=== PATIENT | female | born 1985 | race American Indian/Alaskan Native ===

== ENCOUNTER 2018-01-13 10:52 | Emergency (ER) | payer OTHER ==
[2018-01-13 12:41] LABS: HCG Qualitative,Urine Positive (Negative)
[2018-01-13 12:47] LABS: Bacteria,Urine 3+ /HPF (Negative); Bilirubin,Urine NEG (Negative); Blood,Urine MOD (Negative); Color,Urine Yellow (Yellow); Hyaline Casts,Urine 1 /LPF; Mucus,Urine 2+ /HPF; Urobilinogen,Urine < 2.0 mg/dL (<2.0)
[2018-01-13 12:48] LABS: Protein,Urine >500 mg/dL (Negative)
[2018-01-13] MEDS ORDERED: NORMODYNE IV ONE ×2 (17:06→18:47)
[2018-01-13 17:56] LABS: Basophils # (Auto) 0.1 K/mm3 (0.0-0.1); Basophils % (Auto) 0.4 % (0.0-1.8); Eosinophils # (Auto) 0.1 K/mm3 (0.0-0.4); Eosinophils % (Auto) 0.8 % (0.0-4.3); Hematocrit 38.3 % (30.3-42.9); Hemoglobin 12.8 gm/dl (10.1-14.3); Lymphocytes # (Auto) 3.9 K/mm3 (1.2-5.4); Lymphocytes % (Auto) 23.8 % (13.4-35.0); Mean Corpuscular HGB Conc 34 % (30-34); Mean Corpuscular Hemoglobin 28 pg (28-32); Mean Corpuscular Volume 84 fl (79-97); Monocytes % (Auto) 5.9 % (0.0-7.3); Platelet Count 358 K/mm3 (140-440); Red Blood Count 4.57 M/mm3 (3.65-5.03); Red Cell Distribution Width 14.4 % (13.2-15.2)
[2018-01-13 18:05] LABS: Partial Thromboplastin Time 29.4 Sec. (24.2-36.6)
[2018-01-13 18:45] LABS: Alanine Aminotransferase 8 units/L (7-56); Albumin 3.4 g/dL (3.9-5); BUN/Creatinine Ratio 20; Blood Urea Nitrogen 8 mg/dL (7-17); Calcium 8.9 mg/dL (8.4-10.2); Hemolysis Index 46
[2018-01-13 18:52] LABS: Bilirubin,Direct < 0.2 mg/dL (0-0.2)
--- NOTE | 2018-01-13 18:54 | Emergency Department Report ---
ED General Adult HPI - General Chief complaint: Headache Stated complaint: Time Seen by Provider: 01/13/18 16:50 Source: patient Mode of arrival: Ambulatory Limitations: No Limitations - History of Present Illness Initial comments: This is a 32-year-old female that presents to the emergency department for evaluation of headaches. She actually states that she's been having headaches for 2 months. The last time she went to the doctor was 2 months ago and was found to have hypertension. She was prescription castellano she and her significant other claim. They next told me that she stopped eating fried chicken so she "does not have high blood pressure". However, they did not monitor her blood pressure at all. She states that she has had intermittent headaches but is not complaining of pain at the time of my encounter. She denies neck stiffness or soreness. She denies recent vomiting. She's had no fever or chills. She states that she can walk speak and "do everything". She states that she did 2 home test 2 weeks ago that were positive. Her last period was small and the end of November. The patient has a history of hypertension in . She had demise. She has no children. She does not seem to be medically compliant. -: month(s) (states intermittent headaches for months (2)) Location: head Radiation: non-radiation Quality: aching Consistency: intermittent, now resolved Improves with: none Worsens with: none Associated Symptoms: other (has had some nausea and occasional vomiting during this ) Treatments Prior to Arrival: none - Related Data Allergies Allergy/AdvReac Type Severity Reaction Status Date / Time Penicillins AdvReac Hives Verified 01/13/18 11:48 vancomycin AdvReac Itching Verified 01/13/18 11:48 ED Review of Systems ROS: Stated complaint: Other details as noted in HPI Constitutional: denies: chills, fever Eyes: denies: eye pain, eye discharge, vision change ENT: denies: ear pain, throat pain Respiratory: denies: cough, shortness of breath, wheezing Cardiovascular: denies: chest pain, palpitations Endocrine: no symptoms reported Gastrointestinal: denies: abdominal pain, nausea (no current nausea), diarrhea Genitourinary: denies: urgency, dysuria, discharge Musculoskeletal: denies: back pain, joint swelling, arthralgia Skin: denies: rash, lesions Neurological: as per HPI, headache (intermittent headaches). denies: weakness, paresthesias Psychiatric: denies: anxiety, depression Hematological/Lymphatic: denies: easy bleeding, easy bruising ED Past Medical Hx - Past Medical History Previous Medical History?: Yes Hx Hypertension: Yes (states with pregancy) Hx Dementia: Yes (States with pregancy) Additional medical history: fibroids - Surgical History Past Surgical History?: No - Social History Smoking Status: Unknown if ever smoked Substance Use Type: Marijuana ED Physical Exam - General Limitations: No Limitations General appearance: alert, in no apparent distress - Head Head exam: Present: atraumatic, normocephalic - Eye Eye exam: Present: normal appearance, PERRL, EOMI. Absent: scleral icterus - ENT ENT exam: Present: mucous membranes moist - Neck Neck exam: Present: normal inspection. Absent: tenderness, meningismus - Respiratory Respiratory exam: Present: normal lung sounds bilaterally. Absent: respiratory distress - Cardiovascular Cardiovascular Exam: Present: regular rate, normal rhythm. Absent: systolic murmur, diastolic murmur, rubs, gallop - GI/Abdominal GI/Abdominal exam: Present: soft, normal bowel sounds. Absent: distended, tenderness, guarding, rebound, rigid - Extremities Exam Extremities exam: Present: normal inspection. Absent: pedal edema, calf tenderness - Back Exam Back exam: Present: normal inspection - Neurological Exam Neurological exam: Present: alert, oriented X3, CN II-XII intact, normal gait. Absent: motor sensory deficit - Psychiatric Psychiatric exam: Present: normal mood, anxious - Skin Skin exam: Present: warm, dry, intact, normal color. Absent: rash ED Course Vital Signs 01/13/18 01/13/18 01/13/18 11:28 11:34 15:54 Temperature 98.8 F Pulse Rate 83 89 Respiratory 18 18 Rate Blood Pressure 195/109 181/10 Blood Pressure 181/103 [Right] O2 Sat by Pulse 100 Oximetry 01/13/18 01/13/18 01/13/18 17:47 17:57 18:32 Temperature Pulse Rate 87 85 81 Respiratory 18 18 Rate Blood Pressure 203/114 Blood Pressure 185/97 170/118 [Right] O2 Sat by Pulse 100 100 Oximetry - Reevaluation(s) Reevaluation #1: This is patient's very difficult to manage. She has an early on ultrasound. I am waiting for the ultrasound report. She is not interested in a CT of her head at this point. I do not think she really requires it. I will discuss this with Dr. Brown. She certainly has had headaches related to hypertension. She does not have an acute headache at this time. These headaches have been going on for 2 months. We will see how Dr. Brown feels about the CT exam. I don't think the patient will cooperate anyway. 01/13/18 18:59 Reevaluation #2: Patient is admitted to Dr. Brown with APPLICATIONS TRAINER consultation. 01/13/18 19:09 ED Medical Decision Making - Lab Data Result diagrams: 01/13/18 17:08 01/13/18 17:08 Laboratory Results - last 24 hr 01/13/18 01/13/18 01/13/18 12:04 17:08 17:08 WBC 16.3 H RBC 4.57 Hgb 12.8 Hct 38.3 MCV 84 MCH 28 MCHC 34 RDW 14.4 Plt Count 358 Lymph % (Auto) 23.8 Anson % (Auto) 5.9 Eos % (Auto) 0.8 Baso % (Auto) 0.4 Lymph # 3.9 Anson # 1.0 H Eos # 0.1 Baso # 0.1 Seg Neutrophils % 69.1 Seg Neutrophils # 11.3 H PT 13.7 INR 1.00 APTT 29.4 Sodium Potassium Chloride Carbon Dioxide Anion Gap BUN Creatinine Estimated GFR BUN/Creatinine Ratio Glucose Calcium Total Bilirubin Direct Bilirubin Indirect Bilirubin AST ALT Alkaline Phosphatase Total Protein Albumin Albumin/Globulin Ratio HCG, Quant Urine Color Yellow Urine Turbidity Clear Urine pH 5.0 Ur Specific Humphreys 1.016 Urine Protein >500 Urine Glucose (UA) Neg Urine Ketones Neg Urine Blood Mod Urine Nitrite Pos Ur Reducing Substances Not Reportable Urine Bilirubin Neg Urine Ictotest Not Reportable Urine Urobilinogen < 2.0 Ur Leukocyte Esterase Sm Urine WBC (Auto) 42.0 H Urine RBC (Auto) 4.0 U Epithel Cells (Auto) 12.0 Urine Bacteria (Auto) 3+ Hyaline Casts 1 Urine Mucus 2+ Urine HCG, Qual Positive A 01/13/18 01/13/18 17:08 17:08 WBC RBC Hgb Hct MCV MCH MCHC RDW Plt Count Lymph % (Auto) Anson % (Auto) Eos % (Auto) Baso % (Auto) Lymph # Anson # Eos # Baso # Seg Neutrophils % Seg Neutrophils # PT INR APTT Sodium 134 L Potassium 3.6 Chloride 100.9 Carbon Dioxide 17 L Anion Gap 20 BUN 8 Creatinine 0.4 L Estimated GFR > 60 BUN/Creatinine Ratio 20 Glucose 83 Calcium 8.9 Total Bilirubin 0.50 Direct Bilirubin < 0.2 Indirect Bilirubin 0.3 AST 15 ALT 8 Alkaline Phosphatase 85 Total Protein 7.4 Albumin 3.4 L Albumin/Globulin Ratio 0.9 HCG, Quant 14766 H Urine Color Urine Turbidity Urine pH Ur Specific Humphreys Urine Protein Urine Glucose (UA) Urine Ketones Urine Blood Urine Nitrite Ur Reducing Substances Urine Bilirubin Urine Ictotest Urine Urobilinogen Ur Leukocyte Esterase Urine WBC (Auto) Urine RBC (Auto) U Epithel Cells (Auto) Urine Bacteria (Auto) Hyaline Casts Urine Mucus Urine HCG, Qual Critical care attestation.: If time is entered above; I have spent that time in minutes in the direct care of this critically ill patient, excluding procedure time. ED Disposition Clinical Impression: Uncontrolled hypertension, First trimester Cephalalgia Qualifiers: Headache type: unspecified Headache chronicity pattern: chronic headache Intractability: not intractable Qualified Code(s): R51 - Headache Disposition: OP ADMIT IP TO THIS HOSP Is pt being admited?: Yes Does the pt Need Aspirin: No Condition: Stable Instructions: Hypertension (ED) Referrals: PRIMARY CARE, [Primary Care Provider] - 3-5 Days Time of Disposition: 19:09
[2018-01-13 19:10] LABS: Amphetamine Screen,Urine PRESUMPTIVE NEGATIVE; Benzodiazepines Screen,Urine PRESUMPTIVE NEGATIVE; Cocaine Screen,Urine PRESUMPTIVE NEGATIVE; Methadone Screen,Urine PRESUMPTIVE NEGATIVE; Opiate Screen,Urine PRESUMPTIVE NEGATIVE
[2018-01-13 19:23] LABS: Cannabinoid Screen,Urine PRESUMPTIVE POSITIVE
--- NOTE | 2018-01-13 19:23 | History and Physical Report ---
History of Present Illness History of present illness: ED General Adult HPI - General Chief complaint: Headache Stated complaint: Time Seen by Provider: 01/13/18 16:50 Source: patient Mode of arrival: Ambulatory Limitations: No Limitations - History of Present Illness Initial comments: This is a 32-year-old female that presents to the emergency department for evaluation of headaches. She actually states that she's been having headaches for 2 months. The last time she went to the doctor was 2 months ago and was found to have hypertension. She was prescription castellano she and her significant other claim. They next told me that she stopped eating fried chicken so she "does not have high blood pressure". However, they did not monitor her blood pressure at all. She states that she has had intermittent headaches but is not complaining of pain at the time of my encounter. She denies neck stiffness or soreness. She denies recent vomiting. She's had no fever or chills. She states that she can walk speak and "do everything". She states that she did 2 home test 2 weeks ago that were positive. Her last period was small and the end of November. The patient has a history of hypertension in . She had demise. She has no children. She does not seem to be medically compliant. -: month(s) (states intermittent headaches for months (2)) Location: head Radiation: non-radiation Quality: aching Consistency: intermittent, now resolved Improves with: none Worsens with: none Associated Symptoms: other (has had some nausea and occasional vomiting during this ) Treatments Prior to Arrival: none - Related Data Allergies Allergy/AdvReac Type Severity Reaction Status Date / Time Penicillins AdvReac Hives Verified 01/13/18 11:48 vancomycin AdvReac Itching Verified 01/13/18 11:48 ED Review of Systems ROS: Stated complaint: Other details as noted in HPI Constitutional: denies: chills, fever Eyes: denies: eye pain, eye discharge, vision change ENT: denies: ear pain, throat pain Respiratory: denies: cough, shortness of breath, wheezing Cardiovascular: denies: chest pain, palpitations Endocrine: no symptoms reported Gastrointestinal: denies: abdominal pain, nausea (no current nausea), diarrhea Genitourinary: denies: urgency, dysuria, discharge Musculoskeletal: denies: back pain, joint swelling, arthralgia Skin: denies: rash, lesions Neurological: as per HPI, headache (intermittent headaches). denies: weakness, paresthesias Psychiatric: denies: anxiety, depression Hematological/Lymphatic: denies: easy bleeding, easy bruising ED Past Medical Hx - Past Medical History Previous Medical History?: Yes Hx Hypertension: Yes (states with pregancy) Hx Dementia: Yes (States with pregancy) Additional medical history: fibroids - Surgical History Past Surgical History?: No - Social History Smoking Status: Unknown if ever smoked Substance Use Type: Marijuana Medications and Allergies Allergies Allergy/AdvReac Type Severity Reaction Status Date / Time Penicillins AdvReac Hives Verified 01/13/18 11:48 vancomycin AdvReac Itching Verified 01/13/18 11:48 Exam - Constitutional Vitals: Temp Pulse Resp BP Pulse Ox 98.8 F 81 18 189/101 100 01/13/18 11:34 01/13/18 18:32 01/13/18 18:32 01/13/18 18:55 01/13/18 18:32 Results - Labs CBC & Chem 7: 01/13/18 17:08 01/13/18 17:08 Labs: Abnormal lab results 01/13/18 01/13/18 01/13/18 Range/Units 12:04 17:08 17:08 WBC 16.3 H (4.5-11.0) K/mm3 Kimble # 1.0 H (0.0-0.8) K/mm3 Seg Neutrophils # 11.3 H (1.8-7.7) K/mm3 Sodium 134 L (137-145) mmol/L Carbon Dioxide 17 L (22-30) mmol/L Creatinine 0.4 L (0.7-1.2) mg/dL Albumin 3.4 L (3.9-5) g/dL HCG, Quant (0-4) mIU/mL Urine WBC (Auto) 42.0 H (0.0-6.0) /HPF Urine HCG, Qual Positive A (Negative) 01/13/18 Range/Units 17:08 WBC (4.5-11.0) K/mm3 Kimble # (0.0-0.8) K/mm3 Seg Neutrophils # (1.8-7.7) K/mm3 Sodium (137-145) mmol/L Carbon Dioxide (22-30) mmol/L Creatinine (0.7-1.2) mg/dL Albumin (3.9-5) g/dL HCG, Quant 95303 H (0-4) mIU/mL Urine WBC (Auto) (0.0-6.0) /HPF Urine HCG, Qual (Negative)
[2018-01-13 19:32] VITALS: BP 166/95
--- NOTE | 2018-01-13 19:35 | Ultrasound Report ---
FINAL REPORT EXAM: US OB < = 14 WEEKS FETUS HISTORY: gestational age LMP 11/28/2017 with estimated age 6 weeks 4 days and EDC 09/04/2018 vaginal spotting. TECHNIQUE: Ultrasound of the pelvis using transabdominal and transvaginal imaging PRIORS: None. FINDINGS: Uterus: Uterus is enlarged in size and normal and homogeneous in echogenicity without focal fibroid formation. The uterus measures 10.3 x 5.8 x 6.9 cm in size. There is a single early viable intrauterine gestation noted. Intrauterine gestation: There is a single intrauterine gestation identified with both a pole and yolk sac. heart rate is monitored at 114 BPM using M-mode doppler. Quinn-rump length measurement of 4.8 mm corresponds to estimated age 6 weeks 1 days with EDC 09/07/2018. There is a tiny subchorionic hemorrhage identified along the anterior margin. Ovaries: Both ovaries appear normal in size and echogenicity with normal blood flow bilaterally. The right ovary measures 2.4 x 2.1 x 2.4 cm and the left ovary measures 2.8 x 0.9 x 2.0 cm in size. Other: There is no evidence for solid adnexal mass is seen. There is no free fluid in the cul-de-sac. IMPRESSION: Single intrauterine viable with an approximate age of 6 weeks 1 days. Tiny subchorionic hemorrhage noted.
== END 2018-01-13 20:18 | disposition left against medical advice (07) ==
LOC: ED 10:52
DX: O29.41 Spinal and epidural anesthesia induced headache during pregnancy, first trimester (principal); O16.1 Unspecified maternal hypertension, first trimester; O99.341 Other mental disorders complicating pregnancy, first trimester; F03.90 Unspecified dementia, unspecified severity, without behavioral disturbance, psychotic disturbance, mood disturbance, and anxiety; F12.10 Cannabis abuse, uncomplicated; Z3A.01 Less than 8 weeks gestation of pregnancy; Z88.0 Allergy status to penicillin; Z88.1 Allergy status to other antibiotic agents; Z79.899 Other long term (current) drug therapy
CPT/HCPCS: 36415; 76801; 76817; 80048; 80074; 80307; 81001; 81025; 84702; 85025; 85610; 85730; 96374; 96376; 99284

== ENCOUNTER 2018-01-25 07:43 | Inpatient (IN) | payer MEDICAID, OTHER ==
[2018-01-25 09:10] LABS: Bilirubin,Urine NEG (Negative); Blood,Urine SM (Negative); Color,Urine Yellow (Yellow); Hyaline Casts,Urine 1 /LPF; Mucus,Urine FEW /HPF; Urobilinogen,Urine < 2.0 mg/dL (<2.0)
[2018-01-25] MEDS ORDERED: TYLENOL ONE (09:39)
[2018-01-25 09:45] LABS: Hematocrit 38.7 % (30.3-42.9); Hemoglobin 12.8 gm/dl (10.1-14.3); Mean Corpuscular HGB Conc 33 % (30-34); Mean Corpuscular Hemoglobin 28 pg (28-32); Mean Corpuscular Volume 85 fl (79-97); Platelet Count 368 K/mm3 (140-440); Red Blood Count 4.53 M/mm3 (3.65-5.03); Red Cell Distribution Width 14.3 % (13.2-15.2)
--- NOTE | 2018-01-25 10:37 | Ultrasound Report ---
Pelvic and transvaginal sonography: History: Cramping and bleeding. Findings: Uterus measures 12.1 x 5.9 x 8 cm. Single intrauterine gestation. CRL of fetus is 15.8 mm corresponding to 8 weeks of gestation. heart rate 166 per minute Right ovary 3.7 x 2.2 x 2.2 cm. Complex cyst in the right ovary measures 2.1 cm. Left ovary 3.7 x 1.9 x 2.3 cm. No mass. Impression: Single viable intrauterine gestation.
[2018-01-25] MEDS ORDERED: NORMODYNE IV ONE (10:49)
[2018-01-25] MEDS ORDERED: ZOFRAN IV ONE (10:50)
[2018-01-25] MEDS ORDERED: NACL 0.9% 1000 ML 1,000 ML IV ONE (10:50)
[2018-01-25 11:20] LABS: BUN/Creatinine Ratio 12; Blood Urea Nitrogen 6 mg/dL (7-17); Calcium 9.2 mg/dL (8.4-10.2); Hemolysis Index 19
[2018-01-25 11:21] LABS: Amphetamine Screen,Urine PRESUMPTIVE NEGATIVE; Benzodiazepines Screen,Urine PRESUMPTIVE NEGATIVE; Cocaine Screen,Urine PRESUMPTIVE NEGATIVE; Methadone Screen,Urine PRESUMPTIVE NEGATIVE; Opiate Screen,Urine PRESUMPTIVE NEGATIVE
[2018-01-25] MEDS ORDERED: ZOFRAN IV PRN (11:28)
[2018-01-25] MEDS ORDERED: TYLENOL PO PRN (11:28)
[2018-01-25] MEDS ORDERED: ROCEPHIN/NS 1 GM/50 ML 1 GM/50 ML BAG IV ONE (11:28)
[2018-01-25] MEDS ORDERED: SODIUM CHLORIDE FLUSH SYRINGE 10 ML IV PRN (11:28)
[2018-01-25] MEDS ORDERED: NACL 0.9% 1000 ML IV ONE (11:28)
--- NOTE | 2018-01-25 11:28 | History and Physical Report ---
History of Present Illness Chief complaint: My stomach hurts, and im spotting History of present illness: 32 YO Female with Gestational DM, Gestational HTN from previous 6 years ago presents to ED for evaluation. Pt denies outpatient follow up, or taking any medication for HTN or DM. Pt states that she has experienced vaginal bleeding (spotting) for the past 3 days with increased frequency over the past 1 day. Pt also states that she has experienced abdominal pain over the past 6 weeks with worsening symptoms over the past 2 days. Pt states that her pain is 10/10, diffuse, cramping, Pt seen and evaluated in ED and found to have evidence of Sepsis, Hypertensive Urgency, as well as . Pt denies fever , chills, CP, Palpitations, NVD, Syncope, BRBPR, vision changes, headaches, hematuria, Trauma. OB consulted in ED. Past History Past Medical History: diabetes, hypertension Past Surgical History: No surgical history, Other (reviewed) Social history: single, lives with family. denies: smoking, alcohol abuse, prescription drug abuse Family history: hypertension Medications and Allergies Allergies Allergy/AdvReac Type Severity Reaction Status Date / Time Penicillins AdvReac Hives Verified 01/13/18 11:48 vancomycin AdvReac Itching Verified 01/13/18 11:48 Active Meds: Active Medications Sodium Chloride (Nacl 0.9% 1000 Ml) 1,000 mls @ 75 mls/hr IV ONCE ONE Stop: 01/26/18 00:09 Review of Systems Constitutional: no weight loss, no weight gain, no fever, no chills Ears, nose, mouth and throat: no ear pain, no ear discharge, no tinnitis, no decreased hearing, no nose pain Breasts: no change in shape, no swelling, no mass Cardiovascular: no chest pain, no orthopnea, no palpitations, no rapid/ irregular heart beat, no edema Respiratory: no cough, no cough with sputum, no excessive sputum, no hemoptysis , no shortness of breath Gastrointestinal: abdominal pain, no nausea, no vomiting, no diarrhea, no constipation, no BRBPR, no melena, no hematochezia Genitourinary Female: other (vaginal bleeding), no dysmenorrhea, no pelvic pain , no flank pain, no menorrhagia, no dysuria Rectal: no pain, no incontinence, no bleeding Musculoskeletal: no neck stiffness, no neck pain, no shooting arm pain, no arm numbness/tingling, no low back pain Integumentary: no rash, no pruritis, no redness, no sores, no wounds, no jaundice Neurological: no paralysis, no weakness, no parathesias, no numbness, no tingling, no seizures Psychiatric: no anxiety, no memory loss, no change in sleep habits, no sleep disturbances, no insomnia, no change in appetite Endocrine: no cold intolerance, no heat intolerance, no polyphagia, no excessive thirst, no polydipsia, no polyuria Hematologic/Lymphatic: no easy bruising, no easy bleeding, no lymphadenopathy, no lymphedema Allergic/Immunologic: no urticaria, no allergic rhinitis, no wheezing Exam - Constitutional Vitals: Temp Pulse Resp BP Pulse Ox 97.7 F 92 H 18 193/106 100 01/25/18 08:37 01/25/18 08:37 01/25/18 08:37 01/25/18 08:37 01/25/18 08:37 General appearance: Present: mild distress - EENT Eyes: Present: PERRL ENT: hearing intact, clear oral mucosa - Neck Neck: Present: supple, normal ROM - Respiratory Respiratory effort: normal Respiratory: bilateral: CTA - Cardiovascular Heart Sounds: Present: S1 & S2. Absent: rub, click - Extremities Extremities: pulses symmetrical, No edema Peripheral Pulses: within normal limits - Abdominal General gastrointestinal: Present: soft, non-tender, non-distended, normal bowel sounds Female genitourinary: Present: normal - Integumentary Integumentary: Present: clear, warm, dry - Musculoskeletal Musculoskeletal: gait normal, strength equal bilaterally - Psychiatric Psychiatric: appropriate mood/affect, intact judgment & insight - Neurologic Neurologic: CNII-XII intact, moves all extremities Results - Labs CBC & Chem 7: 01/25/18 08:51 01/25/18 08:51 Labs: Abnormal lab results 01/25/18 01/25/18 01/25/18 Range/Units 08:51 08:51 08:51 WBC 20.3 H (4.5-11.0) K/mm3 Sodium 123 L (137-145) mmol/L Potassium 3.4 L (3.6-5.0) mmol/L Chloride 84.0 L (98-107) mmol/L Carbon Dioxide 21 L (22-30) mmol/L BUN 6 L (7-17) mg/dL Creatinine 0.5 L (0.7-1.2) mg/dL Glucose 138 H (65-100) mg/dL HCG, Quant 01598 H (0-4) mIU/mL Urine WBC (Auto) (0.0-6.0) /HPF 01/25/18 Range/Units Unknown WBC (4.5-11.0) K/mm3 Sodium (137-145) mmol/L Potassium (3.6-5.0) mmol/L Chloride (98-107) mmol/L Carbon Dioxide (22-30) mmol/L BUN (7-17) mg/dL Creatinine (0.7-1.2) mg/dL Glucose (65-100) mg/dL HCG, Quant (0-4) mIU/mL Urine WBC (Auto) 15.0 H (0.0-6.0) /HPF Assessment and Plan - Patient Problems (1) Sepsis Current Visit: Yes Status: Acute Qualifiers: Sepsis type: sepsis due to unspecified organism Qualified Code(s): A41.9 - Sepsis, unspecified organism Plan to address problem: Sepsis protocol, IV antibiotics, IVF resuscitation, monitor uop q shift, serial lactic acid, urinalysis, (2) Abdominal pain Current Visit: Yes Status: Acute Qualifiers: Abdominal location: right upper quadrant Qualified Code(s): R10.11 - Right upper quadrant pain Plan to address problem: Suspect threatened : SUB MASTER consulted, ultrasound, pain control, bowel rest, IVF resuscitation. (3) Accelerated hypertension Current Visit: Yes Status: Acute Plan to address problem: monitor bp q shift, iv hydralazine prn, (4) UTI (urinary tract infection) Current Visit: Yes Status: Acute Qualifiers: Urinary tract infection type: acute cystitis Hematuria presence: with hematuria Qualified Code(s): N30.01 - Acute cystitis with hematuria Plan to address problem: IV antibiotic therapy, urinalysis, (5) First trimester Current Visit: No Status: Acute Plan to address problem: OBGYN consulted, further testing as per obgyn team. (6) DVT prophylaxis Current Visit: Yes Status: Acute Plan to address problem: scd to ble while in bed.
[2018-01-25 11:33] LABS: Alanine Aminotransferase 12 units/L (7-56); Albumin 3.8 g/dL (3.9-5); Bilirubin,Direct < 0.2 mg/dL (0-0.2)
[2018-01-25 11:48] LABS: Cannabinoid Screen,Urine PRESUMPTIVE POSITIVE
[2018-01-25] MEDS ORDERED: cefTRIAXone 1 GM in NACL 0.9% 20 ML IV ONE (12:00)
[2018-01-25] MEDS ORDERED: XYLOCAINE 1% 20 mL ONE (12:36)
[2018-01-25] MEDS ORDERED: XYLOCAINE 1% 20 mL INFILTRATI ONE (12:36)
[2018-01-25] MEDS ORDERED: MORPHINE IV ONE ×2 (13:11→15:12)
--- NOTE | 2018-01-25 13:19 | Emergency Department Report ---
ED General Adult HPI - General Chief complaint: Abdominal Pain Stated complaint: ABDOMINAL PAIN Time Seen by Provider: 01/25/18 10:44 Source: patient Mode of arrival: Ambulatory Limitations: No Limitations - History of Present Illness Initial comments: This is a 32-year-old female who I have seen before a few weeks ago towards the end of December. She was admitted at that time to Dr. Brown for uncontrolled hypertension in and UTI. BUSINESS FUNCTIONAL ANALYST consult was ordered. However unfortunately the patient decided to leave A. She tells me that about a week ago. Went to [facility]. She was told she still had a UTI and prescribed antibiotics. She tells me "I decided to go the natural route instead". The patient has been unfortunately does not compliant with her antibiotics and her antihypertensive regimen. Patient tells me that she has had intermittent crampy right mid quadrant pain "since I got ". She had an ultrasound 2 weeks ago which showed a 6 weeks viable . Today's ultrasound showed an 8 week viable . She states that she's had occasional vaginal spotting to the hospitalist but did not prefer that to me. She denies fever or chills. She states that she has been nauseated and vomiting. She also complains of some constipation. She is not confused or disoriented. She presents with her significant other. -: Gradual Location: abdomen Radiation: non-radiation Quality: other (Cramping) Consistency: intermittent Improves with: none Worsens with: none Associated Symptoms: denies other symptoms Treatments Prior to Arrival: none - Related Data Allergies Allergy/AdvReac Type Severity Reaction Status Date / Time Penicillins AdvReac Hives Verified 01/13/18 11:48 vancomycin AdvReac Itching Verified 01/13/18 11:48 ED Review of Systems ROS: Stated complaint: ABDOMINAL PAIN Other details as noted in HPI Constitutional: denies: chills, fever Eyes: denies: eye pain, eye discharge, vision change ENT: denies: ear pain, throat pain Respiratory: denies: cough, shortness of breath, wheezing Cardiovascular: denies: chest pain, palpitations Endocrine: no symptoms reported Gastrointestinal: abdominal pain, nausea, vomiting. denies: diarrhea Genitourinary: other (occasional spotting). denies: urgency, dysuria, discharge Musculoskeletal: denies: back pain, joint swelling, arthralgia Skin: denies: rash, lesions Neurological: denies: headache, weakness, paresthesias Psychiatric: denies: anxiety, depression Hematological/Lymphatic: denies: easy bleeding, easy bruising ED Past Medical Hx - Past Medical History Hx Hypertension: Yes (states with pregancy) Hx Dementia: Yes (States with pregancy) Additional medical history: fibroids - Surgical History Past Surgical History?: No - Social History Smoking Status: Never Smoker Substance Use Type: None ED Physical Exam - General Limitations: No Limitations General appearance: alert, in no apparent distress - Head Head exam: Present: atraumatic, normocephalic - Eye Eye exam: Present: normal appearance. Absent: scleral icterus - ENT ENT exam: Present: mucous membranes moist - Neck Neck exam: Present: normal inspection. Absent: tenderness, meningismus - Respiratory Respiratory exam: Present: normal lung sounds bilaterally. Absent: respiratory distress - Cardiovascular Cardiovascular Exam: Present: regular rate, normal rhythm. Absent: systolic murmur, diastolic murmur, rubs, gallop - GI/Abdominal GI/Abdominal exam: Present: soft, normal bowel sounds. Absent: distended, tenderness, guarding, rebound, rigid, organomegaly (no hepatomegaly negative Villegas's), mass, bruit, pulsatile mass, hernia - Extremities Exam Extremities exam: Present: normal inspection, normal capillary refill. Absent: pedal edema, calf tenderness - Back Exam Back exam: Present: normal inspection. Absent: CVA tenderness (R), CVA tenderness (L), muscle spasm, paraspinal tenderness, vertebral tenderness - Neurological Exam Neurological exam: Present: alert, oriented X3, CN II-XII intact. Absent: motor sensory deficit - Psychiatric Psychiatric exam: Present: normal affect, normal mood - Skin Skin exam: Present: warm, dry, intact, normal color. Absent: rash ED Course Vital Signs 01/25/18 01/25/18 01/25/18 08:37 11:30 11:31 Temperature 97.7 F 98.2 F Temperature [ Pre-Procedure] Pulse Rate 92 H 90 Pulse Rate [Pre -Procedure] Respiratory 18 16 16 Rate Respiratory Rate [Pre- Procedure] Blood Pressure 193/106 Blood Pressure 203/103 [Left] Blood Pressure [Pre-Procedure] O2 Sat by Pulse 100 100 100 Oximetry 01/25/18 01/25/18 13:20 13:24 Temperature Temperature [ 98.0 F Pre-Procedure] Pulse Rate 90 Pulse Rate [Pre 86 -Procedure] Respiratory Rate Respiratory 20 Rate [Pre- Procedure] Blood Pressure 203/103 Blood Pressure [Left] Blood Pressure 190/110 [Pre-Procedure] O2 Sat by Pulse Oximetry - Reevaluation(s) Reevaluation #1: Nurses attempted several times to obtain a peripheral access. They were unsuccessful. I did inspect the patient's neck. It is very white and there is no EJ evident. Therefore a central line was necessitated. The right femoral triangle was clean and the most reasonable place to place a central line considering the patient's anatomy and actually poor cooperation as well. The area was anesthetized with additional lidocaine. The patient actually did quite well with the central line which was successful after one puncture. The patient explained that the previous allergic reaction to penicillin consisted of "a few blisters on my left arm that didn't last long". Ceftriaxone was ordered for her UTI. Patient was found to be substantially hyponatremic. She is given IV fluid. I did not want to bolus her because of her hypertension. Her mental status was normal. She was admitted to the hospitalist service for further care and evaluation. 01/25/18 13:35 Reevaluation #2: Additionally the patient had a complete abdominal ultrasound ordered to further workup her right sided abdominal pain and leukocytosis. She states she has had this since "I was ". 01/25/18 13:39 - Central Line Placement Right Femoral Consent Obtained: written consent Time Out Performed: Yes Patient Placed on Monitor/Pulse Ox: No MD Prep: mask, gown, gloves Central Line Prep: Povidone-Iodine 1%, Chlorhexidine scrub Local Anesthesia Used: Lidocaine 1% Amount of Anesthesia Used (mls): 10 Ultrasound Used for Placement: No Central Line Lumen Inserted: triple Bloods Obtained for Lab: No Central Line Position: good blood return (venous nonpulsatile), all ports aspirated, flus, sutured in place with 3-0 Dressing Applied: Tegaderm Post Procedure X-Ray: other (not applicable) Patient Tolerated Procedure: well (single puncture well tolerated) Complications: none ED Medical Decision Making - Lab Data Result diagrams: 01/25/18 08:51 01/25/18 08:51 Laboratory Results - last 24 hr 01/25/18 01/25/1818 08:51 08:51 08:51 WBC 20.3 H RBC 4.53 Hgb 12.8 Hct 38.7 MCV 85 MCH 28 MCHC 33 RDW 14.3 Plt Count 368 Sodium Potassium Chloride Carbon Dioxide Anion Gap BUN Creatinine Estimated GFR BUN/Creatinine Ratio Glucose Calcium Magnesium Total Bilirubin Direct Bilirubin Indirect Bilirubin AST ALT Alkaline Phosphatase Total Protein Albumin Albumin/Globulin Ratio HCG, Quant 51053 H Blood Type A POSITIVE 01/25/18 01/25/18 08:51 08:51 WBC RBC Hgb Hct MCV MCH MCHC RDW Plt Count Sodium 123 L Potassium 3.4 L Chloride 84.0 L Carbon Dioxide 21 L Anion Gap 21 BUN 6 L Creatinine 0.5 L Estimated GFR > 60 BUN/Creatinine Ratio 12 Glucose 138 H Calcium 9.2 Magnesium 2.00 Total Bilirubin 0.50 Direct Bilirubin < 0.2 Indirect Bilirubin 0.3 AST 14 ALT 12 Alkaline Phosphatase 86 Total Protein 7.3 Albumin 3.8 L Albumin/Globulin Ratio 1.1 HCG, Quant Blood Type - Radiology Data Radiology results: report reviewed Critical Care Time: Yes Critical care time in (mins) excluding proc time.: 60 Critical care attestation.: If time is entered above; I have spent that time in minutes in the direct care of this critically ill patient, excluding procedure time. ED Disposition Clinical Impression: Hyperemesis gravidarum, Accelerated hypertension, with 8 completed weeks gestation, Hyponatremia Leukocytosis Qualifiers: Leukocytosis type: unspecified Qualified Code(s): D72.829 - Elevated white blood cell count, unspecified UTI (urinary tract infection) Qualifiers: Urinary tract infection type: acute cystitis Hematuria presence: with hematuria Qualified Code(s): N30.01 - Acute cystitis with hematuria Abdominal pain Qualifiers: Abdominal location: right upper quadrant Qualified Code(s): R10.11 - Right upper quadrant pain Disposition: 09 OP ADMIT IP TO THIS HOSP Is pt being admited?: Yes Does the pt Need Aspirin: No Condition: Stable Time of Disposition: 13:44
[2018-01-25] MEDS ORDERED: MORPHINE ONE (13:25)
--- NOTE | 2018-01-25 17:20 | Consultation ---
History of Present Illness Consult date: 01/25/18 Requesting physician: DAREN LISA Reason for consult: other (abdominal pain, hypertension, ) History of present illness: Thank you kindly for the consult. Pt is a 32 year old -Ang[place] female LMP 11/26/17 at 8w4d presents to ED secondary to severe abdominal pain x 2 days. She presented on 01/13/18 after discovering her , was found to have hypertensive urgency and acute cystitis but left AGAINST MEDICAL ADVICE. She reports subsequently being seen in the emergency department at [facility] where she reports being diagnosed with cystitis and treated with an oral antibiotic. She did not take the antibiotic however secondary to some nausea and vomiting. According to her partner, her nausea and vomiting worsened this past Saturday after eating a [employer] sandwich. Since then she has not been able to tolerate oral intake and has had multiple episodes of emesis each day. Of note, the patient has an issue with chronic constipation prior to her and has not had a bowel movement for 7 days. She does report vaginal spotting intermittently since her positive test a few weeks ago. She has not yet established care, but she plans to follow up at [facility] on 01/27/2018. Her obstetric history is significant for an intrauterine demise at term in 2011 complicated by gestational hypertension according to the patient. Past History Past Medical History: hypertension (chronic ) Past Surgical History: no surgical history ENDOCRINOLOGY NURSE History: fibroids (per pt) Social history: no significant social history, other (Marijuana use for nausea ) - Obstetrical History Expected Date of Delivery: 09/02/18 Actual Gestation: 8 Week(s) 4 Day(s) : 2 Para: 0 Hx # Term Pregnancies: 1 Number of Pregnancies: 0 Spontaneous Abortions: 0 Induced : 0 Number of Living Children: 0 Medications and Allergies Allergies Allergy/AdvReac Type Severity Reaction Status Date / Time Penicillins AdvReac Hives Verified 01/13/18 11:48 vancomycin AdvReac Itching Verified 01/13/18 11:48 Active Meds: Active Medications Acetaminophen (Tylenol) 650 mg PO Q4H PRN PRN Reason: Pain MILD(1-3)/Fever >100.5/DANIELLE Sodium Chloride (Nacl 0.9% 1000 Ml) 1,000 mls @ 75 mls/hr IV ONCE ONE Stop: 01/26/18 00:09 Last Admin: 01/25/18 13:24 Dose: 75 mls/hr Ondansetron HCl (Zofran) 4 mg IV Q8H PRN PRN Reason: Nausea And Vomiting Sodium Chloride (Sodium Chloride Flush Syringe 10 Ml) 10 ml IV BID LOKI Sodium Chloride (Sodium Chloride Flush Syringe 10 Ml) 10 ml IV PRN PRN PRN Reason: LINE FLUSH Review of Systems All systems: negative - Vital Signs Vital signs: Vital Signs Temp Pulse Resp BP Pulse Ox 97.7 F 92 H 18 193/106 100 01/25/18 08:37 01/25/18 08:37 01/25/18 08:37 01/25/18 08:37 01/25/18 08:37 Temp Pulse Resp BP Pulse Ox 97.7 F 86 22 190/100 100 01/25/18 15:16 01/25/18 15:16 01/25/18 16:01 01/25/18 15:16 01/25/18 15:16 - Physical Exam Breasts: Positive: deferred Cardiovascular: Regular rate Lungs: Positive: Clear to auscultation Abdomen: Positive: soft, abnormal bowel sounds (hypoactive ) Extremities: Positive: normal Results Result Diagrams: 01/25/18 08:51 01/25/18 08:51 Abnormal lab results 01/25/18 01/25/18 01/25/18 Range/Units 08:51 08:51 08:51 WBC 20.3 H (4.5-11.0) K/mm3 Sodium 123 L (137-145) mmol/L Potassium 3.4 L (3.6-5.0) mmol/L Chloride 84.0 L (98-107) mmol/L Carbon Dioxide 21 L (22-30) mmol/L BUN 6 L (7-17) mg/dL Creatinine 0.5 L (0.7-1.2) mg/dL Glucose 138 H (65-100) mg/dL Lactic Acid (0.7-2.0) mmol/L Albumin (3.9-5) g/dL HCG, Quant 72045 H (0-4) mIU/mL Urine WBC (Auto) (0.0-6.0) /HPF 01/25/18 01/25/18 01/25/18 Range/Units 08:51 16:00 Unknown WBC (4.5-11.0) K/mm3 Sodium (137-145) mmol/L Potassium (3.6-5.0) mmol/L Chloride (98-107) mmol/L Carbon Dioxide (22-30) mmol/L BUN (7-17) mg/dL Creatinine (0.7-1.2) mg/dL Glucose (65-100) mg/dL Lactic Acid 2.80 H* (0.7-2.0) mmol/L Albumin 3.8 L (3.9-5) g/dL HCG, Quant (0-4) mIU/mL Urine WBC (Auto) 15.0 H (0.0-6.0) /HPF All other labs normal. Ultrasound: report reviewed (single viable IUP ingrid 8 wks, complex right ovarian cyst ) Assessment and Plan A: IUP at 8w4d by LMP Abdominal pain Severe Constipation with no bowel movement x 7 days Nausea and Vomiting Hypertensive Urgency UTI- pt non-compliant with prescribed therapy Vaginal spotting P: Suspect primary cause for patient's abdominal pain is her constipation Currently the appears normal Pelvic rest until care established Labetalol for blood pressure control Ceftriaxone IV as previously ordered Thank you for allowing me to participate in the care of this patient. Please do not hesitate to contact me with any further questions.
[2018-01-25] MEDS ORDERED: FLEET PR ONE (21:00)
[2018-01-25] MEDS: COLACE PO SCH (22:45)
[2018-01-25] MEDS: SODIUM CHLORIDE FLUSH SYRINGE 10 ML IV SCH (23:50)
[2018-01-26] MEDS ORDERED: NITRO-BID 2% TP ONE (00:56)
[2018-01-26] MEDS ORDERED: NORMODYNE PO SCH ×2 (01:00→22:00)
[2018-01-26] MEDS: NORMODYNE IV PRN ×3 (01:25→17:18)
[2018-01-26] MEDS: TYLENOL PR PRN ×2 (01:33→06:38)
[2018-01-26] MEDS: NACL 0.45% 1000 ML 1,000 ML IV SCH ×2 (01:33→15:09)
[2018-01-26] MEDS: ZOFRAN IV PRN ×3 (01:33→20:16)
[2018-01-26] MEDS ORDERED: NORMODYNE IV STA (08:29)
[2018-01-26] MEDS ORDERED: LEVAQUIN 750MG/150ML 750 MG/150 ML BAG IV SCH (10:00)
[2018-01-26] MEDS ORDERED: REGLAN IV SCH (11:30)
[2018-01-26] MEDS ORDERED: MORPHINE IV PRN (11:30)
[2018-01-26] MEDS: COLACE PO SCH ×2 (11:53→22:17)
--- NOTE | 2018-01-26 11:59 | Progress Note ---
Assessment and Plan Assessment and plan: --Hyperemesis gravidarum; Patient has intractable nausea vomiting Clear liquid diet, IV fluid, antiemetics, supportive care OB following, Reglan as needed --Early ; viable 8 weeks fetus Supportive care, MAKE UP MAN following --Sepsis; secondary to urinary tract infection Continue empiric antibiotics, follow cultures --Lactic acidosis; secondary to sepsis due to UTI Trending down, resolved --Accelerated hypertension; moderate control Continue current antihypertensives and when necessary medications --DVT prophylaxis; SCDs Closely monitor the patient and adjust management as needed Patient's condition and treatment plan discussed in detail with the patient Her boyfriend at the bedside, nose and the charge nurse MAKE UP MAN evaluation and recommendations noted and appreciated History Interval history: Patient seen and examined medical records reviewed Complaints of severe nausea and vomiting Patient's boyfriend is agitated aggressive and verbal Interfering in patient's treatment Discussed in detail patient's condition and treatment plan at the bedside With the consent of the patient Patient is unable to retain any food Secondary to nausea and vomiting Vital signs reviewed Hospitalist Physical - Constitutional Vitals: Temp Pulse Resp BP Pulse Ox 98.0 F 106 H 20 160/80 99 01/26/18 07:18 01/26/18 07:18 01/26/18 07:18 01/26/18 08:47 01/26/18 07:18 General appearance: Present: mild distress, well-nourished, obese - EENT Eyes: Present: PERRL, EOM intact - Neck Neck: Present: supple, normal ROM - Respiratory Respiratory effort: normal Respiratory: bilateral: diminished, negative: rales, rhonchi, wheezing - Cardiovascular Rhythm: regular Heart Sounds: Present: S1 & S2 - Extremities Extremities: no ischemia, No edema - Abdominal General gastrointestinal: soft, non-tender, non-distended, normal bowel sounds - Integumentary Integumentary: Present: clear, warm - Psychiatric Psychiatric: appropriate mood/affect, cooperative - Neurologic Neurologic: CNII-XII intact, moves all extremities Results - Labs CBC & Chem 7: 01/25/18 08:51 01/25/18 08:51 Labs: Laboratory Last Values WBC 20.3 K/mm3 (4.5-11.0) H 01/25/18 08:51 RBC 4.53 M/mm3 (3.65-5.03) 01/25/18 08:51 Hgb 12.8 gm/dl (10.1-14.3) 01/25/18 08:51 Hct 38.7 % (30.3-42.9) 01/25/18 08:51 MCV 85 fl (79-97) 01/25/18 08:51 MCH 28 pg (28-32) 01/25/18 08:51 MCHC 33 % (30-34) 01/25/18 08:51 RDW 14.3 % (13.2-15.2) 01/25/18 08:51 Plt Count 368 K/mm3 (140-440) 01/25/18 08:51 Sodium 123 mmol/L (137-145) L 01/25/18 08:51 Potassium 3.4 mmol/L (3.6-5.0) L 01/25/18 08:51 Chloride 84.0 mmol/L (98-107) L 01/25/18 08:51 Carbon Dioxide 21 mmol/L (22-30) L 01/25/18 08:51 Anion Gap 21 mmol/L 01/25/18 08:51 BUN 6 mg/dL (7-17) L 01/25/18 08:51 Creatinine 0.5 mg/dL (0.7-1.2) L 01/25/18 08:51 Estimated GFR > 60 ml/min 01/25/18 08:51 BUN/Creatinine Ratio 12 % 01/25/18 08:51 Glucose 138 mg/dL (65-100) H 01/25/18 08:51 Lactic Acid 3.70 mmol/L (0.7-2.0) H* 01/26/18 07:15 Calcium 9.2 mg/dL (8.4-10.2) 01/25/18 08:51 Magnesium 2.00 mg/dL (1.7-2.3) 01/25/18 08:51 Total Bilirubin 0.50 mg/dL (0.1-1.2) 01/25/18 08:51 Direct Bilirubin < 0.2 mg/dL (0-0.2) 01/25/18 08:51 Indirect Bilirubin 0.3 mg/dL 01/25/18 08:51 AST 14 units/L (5-40) 01/25/18 08:51 ALT 12 units/L (7-56) 01/25/18 08:51 Alkaline Phosphatase 86 units/L (35-129) 01/25/18 08:51 Total Protein 7.3 g/dL (6.3-8.2) 01/25/18 08:51 Albumin 3.8 g/dL (3.9-5) L 01/25/18 08:51 Albumin/Globulin Ratio 1.1 % 01/25/18 08:51 HCG, Quant 00536 mIU/mL (0-4) H 01/25/18 08:51 Urine Color Yellow (Yellow) 01/25/18 Unknown Urine Turbidity Clear (Clear) 01/25/18 Unknown Urine pH 7.0 (5.0-7.0) 01/25/18 Unknown Ur Specific [place] 1.012 (1.003-1.030) 01/25/18 Unknown Urine Protein 100 mg/dl mg/dL (Negative) 01/25/18 Unknown Urine Glucose (UA) 50 mg/dL (Negative) 01/25/18 Unknown Urine Ketones 20 mg/dL (Negative) 01/25/18 Unknown Urine Blood Sm (Negative) 01/25/18 Unknown Urine Nitrite Neg (Negative) 01/25/18 Unknown Urine Bilirubin Neg (Negative) 01/25/18 Unknown Urine Urobilinogen < 2.0 mg/dL (<2.0) 01/25/18 Unknown Ur Leukocyte Esterase Mod (Negative) 01/25/18 Unknown Urine WBC (Auto) 15.0 /HPF (0.0-6.0) H 01/25/18 Unknown Urine RBC (Auto) 7.0 /HPF (0.0-6.0) 01/25/18 Unknown U Epithel Cells (Auto) 6.0 /HPF (0-13.0) 01/25/18 Unknown Hyaline Casts 1 /LPF 01/25/18 Unknown Urine Mucus Few /HPF 01/25/18 Unknown Urine Opiates Screen Presumptive negative 01/25/18 Unknown Urine Methadone Screen Presumptive negative 01/25/18 Unknown Ur Barbiturates Screen Presumptive negative 01/25/18 Unknown Ur Phencyclidine Scrn Presumptive negative 01/25/18 Unknown Ur Amphetamines Screen Presumptive negative 01/25/18 Unknown U Benzodiazepines Scrn Presumptive negative 01/25/18 Unknown Urine Cocaine Screen Presumptive negative 01/25/18 Unknown U Marijuana (THC) Screen Presumptive positive 01/25/18 Unknown Drugs of Abuse Note Disclamer 01/25/18 Unknown Blood Type A POSITIVE 01/25/18 08:51
[2018-01-26] MEDS: APRESOLINE IV PRN ×2 (13:01→20:16)
[2018-01-26] MEDS: MORPHINE IV PRN ×2 (16:15→20:17)
[2018-01-26] MEDS: REGLAN IV SCH (17:08)
[2018-01-26] MEDS: SODIUM CHLORIDE FLUSH SYRINGE 10 ML IV SCH ×2 (17:09→22:18)
[2018-01-27] MEDS: NORMODYNE IV PRN (00:33)
[2018-01-27] MEDS: MORPHINE IV PRN ×2 (00:33→04:48)
[2018-01-27] MEDS: ZOFRAN IV PRN ×2 (00:33→04:47)
[2018-01-27] MEDS ORDERED: APRESOLINE ONE (04:35)
[2018-01-27] MEDS: APRESOLINE IV PRN (04:47)
[2018-01-27] MEDS: NACL 0.45% 1000 ML 1,000 ML IV SCH (05:03)
[2018-01-27 05:48] LABS: Hematocrit 35.6 % (30.3-42.9); Hemoglobin 12.3 gm/dl (10.1-14.3); Mean Corpuscular HGB Conc 35 % (30-34); Mean Corpuscular Hemoglobin 29 pg (28-32); Mean Corpuscular Volume 84 fl (79-97); Platelet Count 327 K/mm3 (140-440); Red Blood Count 4.26 M/mm3 (3.65-5.03); Red Cell Distribution Width 14.3 % (13.2-15.2)
[2018-01-27 06:07] LABS: BUN/Creatinine Ratio 17; Blood Urea Nitrogen 10 mg/dL (7-17); Calcium 8.8 mg/dL (8.4-10.2); Hemolysis Index 0
[2018-01-27 06:39] LABS: Basophils % (Manual) 0 % (0.0-1.8); Eosinophils % (Manual) 0 % (0.0-4.3); Monocytes % (Manual) 3.5 % (0.0-7.3); Platelet Estimate Consistent w Auto; Total Cells Counted 200
[2018-01-27 08:22] VITALS: BP 142/77
[2018-01-27] MEDS ORDERED: TRIPLE ANTIBIOTIC TP ONE (09:00)
--- NOTE | 2018-01-27 09:09 | Progress Note ---
Hospitalist Physical - Constitutional Vitals: Temp Pulse Resp BP Pulse Ox 98.4 F 101 H 20 142/77 99 01/27/18 07:28 01/27/18 07:28 01/27/18 07:28 01/27/18 07:28 01/27/18 07:28 General appearance: Present: mild distress, well-nourished, obese Results - Labs CBC & Chem 7: 01/27/18 05:24 01/27/18 05:24 Labs: Laboratory Last Values WBC 27.8 K/mm3 (4.5-11.0) H 01/27/18 05:24 RBC 4.26 M/mm3 (3.65-5.03) 01/27/18 05:24 Hgb 12.3 gm/dl (10.1-14.3) 01/27/18 05:24 Hct 35.6 % (30.3-42.9) 01/27/18 05:24 MCV 84 fl (79-97) 01/27/18 05:24 MCH 29 pg (28-32) 01/27/18 05:24 MCHC 35 % (30-34) H 01/27/18 05:24 RDW 14.3 % (13.2-15.2) 01/27/18 05:24 Plt Count 327 K/mm3 (140-440) 01/27/18 05:24 Add Manual Diff Complete 01/27/18 05:24 Total Counted 200 01/27/18 05:24 Seg Neuts % (Manual) 88.5 % (40.0-70.0) H 01/27/18 05:24 Band Neutrophils % 0 % 01/27/18 05:24 Lymphocytes % (Manual) 8.0 % (13.4-35.0) L 01/27/18 05:24 Reactive Lymphs % (Man) 0 % 01/27/18 05:24 Monocytes % (Manual) 3.5 % (0.0-7.3) 01/27/18 05:24 Eosinophils % (Manual) 0 % (0.0-4.3) 01/27/18 05:24 Basophils % (Manual) 0 % (0.0-1.8) 01/27/18 05:24 Metamyelocytes % 0 % 01/27/18 05:24 Myelocytes % 0 % 01/27/18 05:24 Promyelocytes % 0 % 01/27/18 05:24 Blast Cells % 0 % 01/27/18 05:24 Nucleated RBC % Not Reportable 01/27/18 05:24 Seg Neutrophils # Man 24.6 K/mm3 (1.8-7.7) H 01/27/18 05:24 Band Neutrophils # 0.0 K/mm3 01/27/18 05:24 Lymphocytes # (Manual) 2.2 K/mm3 (1.2-5.4) 01/27/18 05:24 Abs React Lymphs (Man) 0.0 K/mm3 01/27/18 05:24 Monocytes # (Manual) 1.0 K/mm3 (0.0-0.8) H 01/27/18 05:24 Eosinophils # (Manual) 0.0 K/mm3 (0.0-0.4) 01/27/18 05:24 Basophils # (Manual) 0.0 K/mm3 (0.0-0.1) 01/27/18 05:24 Metamyelocytes # 0.0 K/mm3 01/27/18 05:24 Myelocytes # 0.0 K/mm3 01/27/18 05:24 Promyelocytes # 0.0 K/mm3 01/27/18 05:24 Blast Cells # 0.0 K/mm3 01/27/18 05:24 WBC Morphology Not Reportable 01/27/18 05:24 Hypersegmented Neuts Not Reportable 01/27/18 05:24 Hyposegmented Neuts Not Reportable 01/27/18 05:24 Hypogranular Neuts Not Reportable 01/27/18 05:24 Smudge Cells Not Reportable 01/27/18 05:24 Toxic Granulation Not Reportable 01/27/18 05:24 Toxic Vacuolation Not Reportable 01/27/18 05:24 Dohle Bodies Not Reportable 01/27/18 05:24 Pelger-Huet Anomaly Not Reportable 01/27/18 05:24 Rudy Rods Not Reportable 01/27/18 05:24 Platelet Estimate Consistent w auto 01/27/18 05:24 Clumped Platelets Not Reportable 01/27/18 05:24 Plt Clumps, EDTA Not Reportable 01/27/18 05:24 Large Platelets Not Reportable 01/27/18 05:24 Giant Platelets Not Reportable 01/27/18 05:24 Platelet Satelliting Not Reportable 01/27/18 05:24 Plt Morphology Comment Not Reportable 01/27/18 05:24 RBC Morphology Not Reportable 01/27/18 05:24 Dimorphic RBCs Not Reportable 01/27/18 05:24 Polychromasia Not Reportable 01/27/18 05:24 Hypochromasia Not Reportable 01/27/18 05:24 Poikilocytosis Not Reportable 01/27/18 05:24 Anisocytosis Not Reportable 01/27/18 05:24 Microcytosis Not Reportable 01/27/18 05:24 Macrocytosis Not Reportable 01/27/18 05:24 Spherocytes Not Reportable 01/27/18 05:24 Pappenheimer Bodies Not Reportable 01/27/18 05:24 Sickle Cells Not Reportable 01/27/18 05:24 Target Cells Not Reportable 01/27/18 05:24 Tear Drop Cells Not Reportable 01/27/18 05:24 Ovalocytes Not Reportable 01/27/18 05:24 Helmet Cells Not Reportable 01/27/18 05:24 [place] Bodies Not Reportable 01/27/18 05:24 [place] Rings Not Reportable 01/27/18 05:24 [place] Cells Not Reportable 01/27/18 05:24 Bite Cells Not Reportable 01/27/18 05:24 Crenated Cell Not Reportable 01/27/18 05:24 Elliptocytes Not Reportable 01/27/18 05:24 Acanthocytes (Spur) Not Reportable 01/27/18 05:24 Rouleaux Not Reportable 01/27/18 05:24 Hemoglobin C Crystals Not Reportable 01/27/18 05:24 Schistocytes Not Reportable 01/27/18 05:24 Malaria parasites Not Reportable 01/27/18 05:24 Steve Bodies Not Reportable 01/27/18 05:24 Hem Pathologist Commnt No 01/27/18 05:24 Sodium 134 mmol/L (137-145) L D 01/27/18 05:24 Potassium 3.2 mmol/L (3.6-5.0) L 01/27/18 05:24 Chloride 97.5 mmol/L (98-107) L 01/27/18 05:24 Carbon Dioxide 23 mmol/L (22-30) 01/27/18 05:24 Anion Gap 17 mmol/L 01/27/18 05:24 BUN 10 mg/dL (7-17) 01/27/18 05:24 Creatinine 0.6 mg/dL (0.7-1.2) L 01/27/18 05:24 Estimated GFR > 60 ml/min 01/27/18 05:24 BUN/Creatinine Ratio 17 % 01/27/18 05:24 Glucose 129 mg/dL (65-100) H 01/27/18 05:24 Lactic Acid 1.60 mmol/L (0.7-2.0) 01/26/18 14:55 Calcium 8.8 mg/dL (8.4-10.2) 01/27/18 05:24 Phosphorus 3.50 mg/dL (2.5-4.5) 01/27/18 05:24 Magnesium 1.90 mg/dL (1.7-2.3) 01/27/18 05:24 Total Bilirubin 0.50 mg/dL (0.1-1.2) 01/25/18 08:51 Direct Bilirubin < 0.2 mg/dL (0-0.2) 01/25/18 08:51 Indirect Bilirubin 0.3 mg/dL 01/25/18 08:51 AST 14 units/L (5-40) 01/25/18 08:51 ALT 12 units/L (7-56) 01/25/18 08:51 Alkaline Phosphatase 86 units/L (35-129) 01/25/18 08:51 Total Protein 7.3 g/dL (6.3-8.2) 01/25/18 08:51 Albumin 3.8 g/dL (3.9-5) L 01/25/18 08:51 Albumin/Globulin Ratio 1.1 % 01/25/18 08:51 HCG, Quant 24848 mIU/mL (0-4) H 01/25/18 08:51 Urine Color Yellow (Yellow) 01/25/18 Unknown Urine Turbidity Clear (Clear) 01/25/18 Unknown Urine pH 7.0 (5.0-7.0) 01/25/18 Unknown Ur Specific [place] 1.012 (1.003-1.030) 01/25/18 Unknown Urine Protein 100 mg/dl mg/dL (Negative) 01/25/18 Unknown Urine Glucose (UA) 50 mg/dL (Negative) 01/25/18 Unknown Urine Ketones 20 mg/dL (Negative) 01/25/18 Unknown Urine Blood Sm (Negative) 01/25/18 Unknown Urine Nitrite Neg (Negative) 01/25/18 Unknown Urine Bilirubin Neg (Negative) 01/25/18 Unknown Urine Urobilinogen < 2.0 mg/dL (<2.0) 01/25/18 Unknown Ur Leukocyte Esterase Mod (Negative) 01/25/18 Unknown Urine WBC (Auto) 15.0 /HPF (0.0-6.0) H 01/25/18 Unknown Urine RBC (Auto) 7.0 /HPF (0.0-6.0) 01/25/18 Unknown U Epithel Cells (Auto) 6.0 /HPF (0-13.0) 01/25/18 Unknown Hyaline Casts 1 /LPF 01/25/18 Unknown Urine Mucus Few /HPF 01/25/18 Unknown Urine Opiates Screen Presumptive negative 01/25/18 Unknown Urine Methadone Screen Presumptive negative 01/25/18 Unknown Ur Barbiturates Screen Presumptive negative 01/25/18 Unknown Ur Phencyclidine Scrn Presumptive negative 01/25/18 Unknown Ur Amphetamines Screen Presumptive negative 01/25/18 Unknown U Benzodiazepines Scrn Presumptive negative 01/25/18 Unknown Urine Cocaine Screen Presumptive negative 01/25/18 Unknown U Marijuana (THC) Screen Presumptive positive 01/25/18 Unknown Drugs of Abuse Note Disclamer 01/25/18 Unknown Blood Type A POSITIVE 01/25/18 08:51
[2018-01-27] MEDS: REGLAN IV SCH (09:14)
[2018-01-27] MEDS ORDERED: cefTRIAXone 1 GM in NACL 0.9% 20 ML IV SCH (10:00)
[2018-01-27] MEDS ORDERED: K-DUR PO ONE (10:00)
[2018-01-27] MEDS ORDERED: cefTRIAXone 2 GM in NACL 0.9% 20 ML IV SCH (10:00)
--- NOTE | 2018-01-27 14:26 | Ultrasound Report ---
FINAL REPORT PROCEDURE: US ABDOMEN COMPLETE TECHNIQUE: Real-time sonography in multiple planes of the abdomen was performed with image documentation. CPT 50773 HISTORY: R mid quadrant pain for months, 8 week COMPARISON: No prior studies are available for comparison. FINDINGS: Today's study is limited. The patient was unable to lie still for the exam due to discomfort. The right kidney measures 11.3 x 5.4 x 5.5 centimeter. The left kidney 11.0 x 6.6 x 5.7 centimeters. No hydronephrosis visualized. Simple renal cortical cyst visualize left kidney measuring 1.2 centimeter. Kidneys are otherwise unremarkable. No calculi are identified. Echogenicity of the renal cortex appears to be within normal limits bilaterally. Gallbladder is unremarkable. No evidence of gallstones or gallbladder wall thickening. Common bile duct is normal caliber measuring 4.2 millimeters. The liver showed no abnormality. Echogenicity appear normal. No masses are seen. The intrahepatic ducts do not appear to be distended. No ascites is seen. Proximal abdominal aorta visualized which was unremarkable. Mid and distal abdominal aorta was not seen. Visualized portions of the pancreas appear normal. Some portions are obscured by bowel gas and cannot be commented on. The spleen is not enlarged measuring 8.8 centimeters. IMPRESSION: Limited exam as described. Small renal cortical cyst visualize left kidney. No other abnormalities are identified..
== END 2018-01-27 09:05 | disposition left against medical advice (07) | DRG 781 ==
LOC: ED 07:43 → 3A 11:28
PROVIDERS: ADMIT Internal Medicine; ATTEND Internal Medicine
DX: O98.811 Other maternal infectious and parasitic diseases complicating pregnancy, first trimester (principal); A41.9 Sepsis, unspecified organism; O23.41 Unspecified infection of urinary tract in pregnancy, first trimester; O16.1 Unspecified maternal hypertension, first trimester; O21.0 Mild hyperemesis gravidarum; I16.0 Hypertensive urgency; O99.351 Diseases of the nervous system complicating pregnancy, first trimester; F03.90 Unspecified dementia, unspecified severity, without behavioral disturbance, psychotic disturbance, mood disturbance, and anxiety; O26.891 Other specified pregnancy related conditions, first trimester; K59.00 Constipation, unspecified; O26.851 Spotting complicating pregnancy, first trimester; D72.829 Elevated white blood cell count, unspecified; Z3A.08 8 weeks gestation of pregnancy; Z88.0 Allergy status to penicillin; Z88.1 Allergy status to other antibiotic agents; Z82.49 Family history of ischemic heart disease and other diseases of the circulatory system
CPT/HCPCS: 36415; 76700; 76801; 76817; 80048; 80074; 80307; 81001; 82140; 83735; 84100; 84702; 85007; 85025; 85027; 86900; 86901; 87040; 87086; 87591; 96374; 96375; 99291; A6250; J0360; J0696; J2270; J2405; J2765; J7030